=== PATIENT | female | born 1990 | race African-American/Black ===

== ENCOUNTER 2017-04-23 21:36 | Emergency (ER) | payer MEDICAID ==
[~2017-04-23] VITALS: Ht 157.5 cm; Wt 56.0 kg
[2017-04-23 23:00] LABS: CLARITY URINE CLEAR (CLEAR); COLOR URINE YELLOW (YELLOW); KETONES URINE NEGATIVE (NEGATIVE); LEUKOCYTE ESTERASE URINE NEGATIVE (NEGATIVE); NITRITE URINE NEGATIVE (NEGATIVE); OCCULT BLOOD URINE TRACE (NEGATIVE); PROTEIN URINE NEGATIVE (NEGATIVE); SPECIFIC GRAVITY URINE 1.026 (1.005-1.030); UROBILINOGEN URINE 0.2 E.U./dL (0.2-1.0)
[2017-04-23 23:22] LABS: HCG SCREEN NEGATIVE
[2017-04-23 23:56] VITALS: BP 115/79
[2017-04-24] MEDS ORDERED: KETOROLAC 30MG/ML VIAL IM ONE
== END 2017-04-24 00:13 | disposition home or self-care (01) ==
LOC: ER 22:25
DX: R10.32 Left lower quadrant pain (principal)
CPT/HCPCS: 81001; 84703; 96372; 99284; J1885; Z7610